=== PATIENT | male | born 1990 | race Two or more races ===

== ENCOUNTER 2021-06-22 14:17 | Emergency (ER) | payer OTHER ==
[~2021-06-22] VITALS: Ht 177.8 cm; Wt 96.2 kg
== END 2021-06-22 15:25 | disposition home or self-care (01) ==
LOC: ER 14:17
DX: S71.111A Laceration without foreign body, right thigh, initial encounter (principal); W26.0XXA Contact with knife, initial encounter; Y93.89 Activity, other specified; Y92.89 Other specified places as the place of occurrence of the external cause; Y99.8 Other external cause status

== ENCOUNTER 2021-07-02 09:39 | Emergency (ER) | payer OTHER ==
[~2021-07-02] VITALS: Ht 177.8 cm; Wt 95.7 kg
== END 2021-07-02 10:08 | disposition home or self-care (01) ==
LOC: ER 09:39
DX: Z48.02 Encounter for removal of sutures (principal)